=== PATIENT | male | born 1950 | race Caucasian/White ===

== ENCOUNTER 2025-06-10 08:27 | Observation (INO) ==
[2025-06-10 09:17] LABS: Hematocrit (blood only) 41.9 % (42.0-52.0); Hemoglobin 14.4 g/dl (14.0-18.0); Immature Granulocytes # (auto) 0.02 K/uL (0.01-0.20); Immature Granulocytes % (auto) 0.3 %; Mean Corpuscular Hemoglobin 29.3 pg (25.0-34.0); Mean Corpuscular Volume 85.2 fL (80.0-100.0); Platelet Count 274 K/uL (130-400); RDW Standard Deviation 43.6 fL (36.4-46.3); Red Blood Count 4.92 M/uL (4.70-6.10); White Blood Count 6.13 K/ul (4.8-10.8)
[2025-06-10 09:18] LABS: Appearance Urine Clear (Clear); Glucose Urine UA Negative (Negative)
--- NOTE | 2025-06-10 09:24 | XRay Report ---
XR chest 1V portable CLINICAL HISTORY: Dyspnea COMPARISON STUDY: 06/02/2025 FINDINGS: Stable mild cardiomegaly without pulmonary vascular congestion. Stable embolization coils o verlying the right hilum. No consolidation or pleural effusion. No pneumothorax. IMPRESSION: No acute findings. ACT 112: Negative or not required by law. Electronically signed by: Se Snow M.D. 06/10/2025 9:22 AM
[2025-06-10 09:36] LABS: Anion Gap 8.0 (3-11); Bilirubin,Total 0.4 mg/dl (0.2-1.0); Calcium 9.1 mg/dl (8.6-10.3); Carbon Dioxide 24.0 mmol/L (21-32); Chloride 106.0 mmol/L (98-107); Magnesium 2.1 mg/dl (1.7-2.4); Potassium 4.2 mmol/L (3.5-5.1); Sodium 138.0 mmol/L (136-145)
[2025-06-10 09:42] LABS: Alanine Aminotransferase 30.0 U/L (7-52); Albumin Globulin Ratio 1.3 (0.9-2); Alkaline Phosphatase 59.0 U/L (34-104); Blood Urea Nitrogen 15.0 mg/dl (6-23); Creatinine Clr Calc Pharmacy 49.5 ml/min; Globulin 3.1 gm/dl (2.5-4.0); Glucose 88.0 mg/dl (70-99(Fasting)); Total Protein 7.2 gm/dl (6.0-8.3)
[2025-06-10 09:45] LABS: INR 2.1 (0.9-1.1); Prothrombin Time 21.4 Seconds (9.0-12.0)
--- NOTE | 2025-06-10 10:11 | Emergency Department Note ---
Impression & Plan Congestive heart failure, Orthopnea ED Provider Note NAME: VINOD POSADA AGE: 75 SEX: M : 1950 ARRIVES VIA: Walk-In INFORMANT: Patient, ED PROVIDER(S): Miracle Morales MD CHIEF COMPLAINT: Chest pain, shortness of breath HPI: This is a 75-year-old male present for chest pain and shortness of breath. Patient notes that last night he began having intermittent shortness of breath, specifically with laying flat. He reports that he was recently at an outside hospital where he had a STEMI, had a V. tach cardiac arrest and was transferred to this hospital. He was then transferred out to another hospital where he had cardiac catheterization. Patient was started on Brilinta, Lovenox and baby aspirin. No reported pleurisy. Patient states he has had chest pain intermittently which he thinks is due to the chest compressions. This has been persistent since his episode multiple weeks ago. ROS: See above HPI for pertinent positives & negatives. A total of 10 systems reviewed and were otherwise negative. PAST MEDICAL HISTORY: See Below PAST SURGICAL HISTORY: See Below FAMILY HISTORY: See Below SOCIAL HISTORY: See Below HOME MEDICATIONS: See Below ALLERGIES: See Below VITALS: See Below PHYSICAL EXAMINATION: General: resting comfortably in no acute distress Head: Normocephalic and atraumatic Eyes: Normal inspection, extraocular muscles intact Ear, nose, throat: Normal external exam Neck: Normal range of motion Respiratory: lungs clear to auscultation bilaterally Cardiovascular: Regular rate/rhythm, no murmur GI: soft, nontender, no guarding or rebound Extremities: nontender, moves all extremities Neuro: The patient awake and alert, appropriately conversive, no focal deficits, symmetric faces Skin: Warm, dry, and intact MEDICAL DECISION MAKING: This is 75-year-old male presenting for chest pain/shortness of breath. Patient is found orthopneic shortness of breath. Chest pain is persistent since his cardiac arrest and is sternal. Will do EKG, troponin, BNP, chest x-ray. He is already on blood thinners and not hypoxic currently to suggest PE. - Bloodwork is reviewed showing no significant leukocytosis, anemia, electrolyte or creatinine abnormality. Creatinine 1.53 -Troponin elevated at 113, downtrend to 105. Reported the patient's discharge troponin was 2500 4 days ago. - BNP slightly elevated. With patient orthopnea, consider CHF. Due to patient's previous history of cardiac arrest, STEMI, will limit the patient for observation and further workup including echocardiogram. Differential diagnosis: ACS, PE, CHF, pneumonia Independent History obtained from: Diagnostics interpreted by me: ECG: ECG independently interpreted by me with sinus bradycardia with first- degree AV block and rate of 58, left bundle branch block, normal QTc, no ST segment elevations consistent with STEMI criteria Cardiac Monitoring: An order was placed for continuous cardiac monitoring. The monitor shows a rate of 53 with sinus rhythm. 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) Orthopnea (Acute) Atrial fibrillation, currently in sinus rhythm (Chronic) Hypertension (Chronic) Coronary artery disease (Chronic) Medical History Anaplasmosis Social History Smoking Status: Former smoker Hx Alcohol Use: No Hx Substance Use: No Preferred Language: Upper Sorbian Beliefs That Will Affect Care: Shinto Current Living Situation: Spouse current occupation: Retired Feels Safe at Home: Yes Allergies Allergies Allergy/AdvReac Type Severity Reaction Status Date / Time [id number] Reductase AdvReac Severe MUSCLE Verified 06/02/25 10:00 Inhibitor PAIN/STIFFNESS Home Meds Home Medications Medication Instructions Recorded Confirmed cholecalciferol (vitamin D3) 25 25 mcg PO DAILY 05/19/23 06/10/25 mcg (1,000 unit) capsule (Vitamin D3) enalapril maleate 10 mg tablet 10 mg PO BID 05/19/23 06/10/25 colchicine 0.6 mg tablet 0.6 mg PO DIRECTED PRN Gout 06/02/25 06/10/25 Flare metoprolol succinate 25 mg 12.5 mg PO DAILY 06/02/25 06/10/25 tablet,extended release 24 hr amiodarone 200 mg tablet 200 mg PO DAILY 06/10/25 06/10/25 aspirin 81 mg tablet,delayed 81 mg PO DAILY 06/10/25 06/10/25 release enoxaparin 100 mg/mL subcutaneous 100 mg subcut Q12H 06/10/25 06/10/25 syringe ticagrelor 90 mg tablet 90 mg PO BID 06/10/25 06/10/25 warfarin 3 mg tablet 3 - 6 mg PO PM 06/10/25 06/10/25 Results & Data (ED) Vital Signs Vital Signs - 24 hr 06/10/25 08:28 06/10/25 08:28 06/10/25 08:32 Temperature 36.6 C Temperature Source Temporal Artery Scan Pulse Rate 58 L Pulse Rate from SpO2 Sensor Respiratory Rate 18 Respiratory Effort / Characteristics Non-Labored Spontaneous Respiratory Depth Normal Blood Pressure 133/78 Blood Pressure Mean 96 Pulse Oximetry 97 Oxygen Delivery Method Room Air Room Air Room Air Sepsis Recent Fever Within 48 Hours No Sepsis New/Unexplained Change in Mental Status No Sepsis Action Taken by Nursing No Action Required 06/10/25 08:45 06/10/25 08:48 06/10/25 08:49 Temperature Temperature Source Pulse Rate 57 L 58 L Pulse Rate from SpO2 Sensor 58 L Respiratory Rate 16 Respiratory Effort / Characteristics Respiratory Depth Blood Pressure 141/96 H 146/91 H Blood Pressure Mean 109 109 Pulse Oximetry 98 Oxygen Delivery Method Sepsis Recent Fever Within 48 Hours Sepsis New/Unexplained Change in Mental Status Sepsis Action Taken by Nursing 06/10/25 09:03 06/10/25 09:27 06/10/25 09:39 Temperature Temperature Source Pulse Rate 54 L 52 L 51 L Pulse Rate from SpO2 Sensor 54 L 52 L 51 L Respiratory Rate 15 16 15 Respiratory Effort / Characteristics Respiratory Depth Blood Pressure 146/91 H 123/69 Blood Pressure Mean 109 87 Pulse Oximetry 97 97 98 Oxygen Delivery Method Sepsis Recent Fever Within 48 Hours Sepsis New/Unexplained Change in Mental Status Sepsis Action Taken by Nursing 06/10/25 09:57 06/10/25 10:03 06/10/25 10:30 Temperature Temperature Source Pulse Rate 56 L 53 L 52 L Pulse Rate from SpO2 Sensor 55 L 52 L 52 L Respiratory Rate 17 14 18 Respiratory Effort / Characteristics Respiratory Depth Blood Pressure 121/82 121/82 Blood Pressure Mean 95 95 Pulse Oximetry 98 99 97 Oxygen Delivery Method Sepsis Recent Fever Within 48 Hours Sepsis New/Unexplained Change in Mental Status Sepsis Action Taken by Nursing 06/10/25 11:00 06/10/25 11:00 06/10/25 11:27 Temperature Temperature Source Pulse Rate 52 L 52 L Pulse Rate from SpO2 Sensor 52 L 53 L Respiratory Rate 17 14 Respiratory Effort / Characteristics Respiratory Depth Blood Pressure 120/71 120/71 120/71 Blood Pressure Mean 87 90 87 Pulse Oximetry 97 97 Oxygen Delivery Method Sepsis Recent Fever Within 48 Hours Sepsis New/Unexplained Change in Mental Status Sepsis Action Taken by Nursing 06/10/25 12:03 06/10/25 12:48 Temperature Temperature Source Pulse Rate 52 L 53 L Pulse Rate from SpO2 Sensor 52 L Respiratory Rate 18 Respiratory Effort / Characteristics Respiratory Depth Blood Pressure 134/84 Blood Pressure Mean 100 Pulse Oximetry 98 Oxygen Delivery Method Sepsis Recent Fever Within 48 Hours Sepsis New/Unexplained Change in Mental Status Sepsis Action Taken by Nursing Laboratory Data 06/10/25 08:52 06/10/25 08:52 Lab Results 06/10/25 06/10/25 Range/Units 08:52 10:51 WBC 6.13 (4.8-10.8) K/ul RBC 4.92 (4.70-6.10) M/uL Hgb 14.4 (14.0-18.0) g/dl Hct 41.9 L (42.0-52.0) % MCV 85.2 (80.0-100.0) fL MCH 29.3 (25.0-34.0) pg MCHC 34.4 (32.0-36.0) g/dL RDW Std Deviation 43.6 (36.4-46.3) fL RDW Coeff of Mehul 14.3 (11.5-14.5) % Plt Count 274 (130-400) K/uL MPV 9.3 L (9.4-12.4) fL Immature Gran % (Auto) 0.3 % Neut % (Auto) 46.6 % Lymph % (Auto) 38.3 % [place] % (Auto) 10.0 % Eos % (Auto) 4.1 % Baso % (Auto) 0.7 % Neut # (Auto) 2.86 (1.40-6.50) K/uL Lymph # (Auto) 2.35 (1.20-3.40) K/uL [place] # (Auto) 0.61 H (0.11-0.59) K/uL Eos # (Auto) 0.25 (0.00-0.50) K/uL Baso # (Auto) 0.04 (0.00-0.20) K/uL Immature Gran # (Auto) 0.02 (0.01-0.20) K/uL PT 21.4 H (9.0-12.0) Seconds INR 2.1 H (0.9-1.1) Sodium 138 (136-145) mmol/L Potassium 4.2 (3.5-5.1) mmol/L Chloride 106 (98-107) mmol/L Carbon Dioxide 24 (21-32) mmol/L Anion Gap 8 (3-11) BUN 15 (6-23) mg/dl Creatinine 1.53 H (0.6-1.4) mg/dl Est Cr Clr Drug Dosing 49.5 ml/min eGFR 46.82 BUN/Creatinine Ratio 9.8 L (10-20) Glucose 88 (70-99(Fasting)) mg/dl Calcium 9.1 (8.6-10.3) mg/dl Magnesium 2.1 (1.7-2.4) mg/dl Total Bilirubin 0.4 (0.2-1.0) mg/dl AST 21 (13-39) U/L ALT 30 (7-52) U/L Alkaline Phosphatase 59 (34-104) U/L Troponin I High Sens 113.2 H* 105.2 H* (0-20) pg/ml B-Natriuretic Peptide 322 H (0-100) pg/ml Total Protein 7.2 (6.0-8.3) gm/dl Albumin 4.1 (3.4-5.0) gm/dl Globulin 3.1 (2.5-4.0) gm/dl Albumin/Globulin Ratio 1.3 (0.9-2) Urine Color Yellow Urine Appearance Clear (Clear) Urine pH 8.5 H (4.5-7.5) Ur Specific [place] 1.007 (1.000-1.030) Urine Protein Negative (Negative) Urine Glucose (UA) Negative (Negative) Urine Ketones Negative (Negative) Urine Blood Negative (Negative) Urine Nitrite Negative (Negative) Urine Bilirubin Negative (Negative) Urine Urobilinogen Negative (Negative) Ur Leukocyte Esterase Negative (Negative) Urine Comment Imaging Data Radiologist's Impression: Chest X-Ray 06/10/25 08:48 XR chest 1V portable CLINICAL HISTORY: Dyspnea COMPARISON STUDY: 06/02/2025 FINDINGS: Stable mild cardiomegaly without pulmonary vascular congestion. Stable embolization coils overlying the right hilum. No consolidation or pleural effusion. No pneumothorax. IMPRESSION: No acute findings. ACT 112: Negative or not required by law. Electronically signed by: Se Snow M.D. 06/10/2025 9:22 AM Discharge Plan Visit Data Chief Complaint: Shortness of Breath/Dyspnea Stated Complaint: LIGHTHEADED, SOB, STEMI ON 06/02 ED Provider: Miracle Morales Discharge Problem: Congestive heart failure, Orthopnea Patient Disposition: Admitted As Inpatient Condition: Fair Forms Stand Alone Forms: My [facility] Prescriptions Prescriptions: No Action enalapril maleate 10 mg tablet 10 mg PO BID Patient Comments: currently on hold cholecalciferol (vitamin D3) [Vitamin D3] 25 mcg (1,000 unit) Capsule 25 mcg PO DAILY metoprolol succinate 25 mg tablet extended release 24 hr 12.5 mg PO DAILY colchicine 0.6 mg tablet 0.6 mg PO DIRECTED PRN (Reason: Gout Flare) aspirin 81 mg tablet,delayed release (DR/EC) 81 mg PO DAILY enoxaparin 100 mg/mL syringe 100 mg subcut Q12H ticagrelor 90 mg tablet 90 mg PO BID Patient Comments: 06/10- per spouse, pt took loading dose of 180mg this morning and will drop to 90mg this evening amiodarone 200 mg tablet 200 mg PO DAILY warfarin 3 mg tablet 3 - 6 mg PO PM Referrals Referrals: Abhijeet Santoyo MD [Primary Care Provider] -
--- NOTE | 2025-06-10 13:34 | History & Physical Report ---
Date of Service June 10, 2025 Assessment & Plan (1) Elevated troponin level not due to acute coronary syndrome: (2) Orthopnea: (3) Compensated heart failure with improved ejection fraction (HFimpEF): (4) Atrial fibrillation, currently in sinus rhythm: (5) Hypertension: (6) Coronary artery disease: Plan In summary this is a 75-year-old male who presents to [facility] for substernal comfort and orthopnea with recent occlusive myocardial infarction requiring ACLS protocol and transfer to tertiary care center within the past 10 days; interventions at this tertiary center included thrombolysis of a right coronary artery thrombus without stenting required. # Elevated troponin level not due to ACS//orthopnea//compensated heart failure with improved ejection fraction Slightly elevated troponin level is continuing to downtrend from previous measures obtained at a tertiary care center, per family report the patient's troponin around the time of discharge was 2100; downtrending troponin during his current ED presentation. EKGs without ischemic changes, though significantly different from his previous EKG in our system which is expected considering interventions provided after transfer; continue outpatient medication regimen as detailed below Continuous cardiac telemetry Obtain TTE to compare to previously obtained post resuscitation TTE from 1 week prior Obtain INR on 06/11 to assess for therapeutic INR of 2.0-3.0 Continue warfarin 3 mg p.o. daily in the evening, ticagrelor 90 mg p.o. twice daily, metoprolol succinate 12.5 mg p.o. daily, Lovenox 100 mg subcutaneous twice daily through 06/10, aspirin 81 mg p.o. daily through 06/15 # atrial fibrillation Chronic condition, currently in sinus rhythm; continue home amiodarone 20 mg p.o. daily # hypertension Enalapril was discontinued during his previous hospitalization at a tertiary care facility; consider reinitiation or initiation of an alternative medication during his hospitalization if he remains persistently hypertensive to reduce risk of long-term cardiovascular consequences Admission and Anticipated Discharge Date Admission Date: 06/10/2025; Anticipated discharge within 24 to 48 hours History of Present Illness Primary Care Provider: Abhijeet Santoyo MD Mr. Ayala is a 75-year-old male whose active medical conditions include heart failure with improved ejection fraction, chronic atrial fibrillation who presented to [facility] on 06/10 due to sudden onset orthopnea and substernal chest discomfort that began on the morning of 06/10. Of note the patient was recently hospitalized at [facility] due to an occlusive myocardial infarction of the right coronary artery requiring thrombolysis. They were discharged from that facility on 06/06.They were feeling well since discharge until this morning with the symptoms previously described. Allergies Allergy/AdvReac Type Severity Reaction Status Date / Time [id number] Reductase AdvReac Severe MUSCLE Verified 06/02/25 10:00 Inhibitor PAIN/STIFFNESS Home Medications Medication Instructions Recorded Confirmed Type cholecalciferol (vitamin D3) 25 25 mcg PO DAILY 05/19/23 06/10/25 History mcg (1,000 unit) capsule (Vitamin D3) enalapril maleate 10 mg tablet 10 mg PO BID 05/19/23 06/10/25 History colchicine 0.6 mg tablet 0.6 mg PO DIRECTED PRN Gout 06/02/25 06/10/25 History Flare metoprolol succinate 25 mg 12.5 mg PO DAILY 06/02/25 06/10/25 History tablet,extended release 24 hr amiodarone 200 mg tablet 200 mg PO DAILY 06/10/25 06/10/25 History aspirin 81 mg tablet,delayed 81 mg PO DAILY 06/10/25 06/10/25 History release enoxaparin 100 mg/mL subcutaneous 100 mg subcut Q12H 06/10/25 06/10/25 History syringe ticagrelor 90 mg tablet 90 mg PO BID 06/10/25 06/10/25 History warfarin 3 mg tablet 3 - 6 mg PO PM 06/10/25 06/10/25 History Past Med/Surg History Problem List (Updated 06/10/25 @ 13:29 by Erick Gudino DO) Elevated troponin level not due to acute coronary syndrome (Acute) 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) Orthopnea (Acute) Atrial fibrillation, currently in sinus rhythm (Chronic) Hypertension (Chronic) Coronary artery disease (Chronic) Medical History Anaplasmosis Social History Smoking Status: Former smoker Hx Alcohol Use: No Hx Substance Use: No Preferred Language: Singaporean Beliefs That Will Affect Care: Islam Current Living Situation: Spouse current occupation: Retired Feels Safe at Home: Yes Review of Systems Review of Systems: Constitutional: denies fevers, chills, malaise, fatigue Cardiovascular: endorses orthopnea, substernal chest discomfort; denies palpitations, syncope, peripheral edema, platypnea Pulmonary: denies cough, dyspnea on exertion, pleuritic chest pain Gastrointestinal: denies nausea, emesis, dysphagia, dyspepsia, constipation, diarrhea Genitourinary: denies dysuria, hematuria, urinary incontinence Neurologic: denies focal weakness, paresthesias or numbness Musculoskeletal: denies arthralgias, progressive weakness, recent falls Integumentary: denies new or developing rashes or lesions Physical Exam Physical Exam: General: Adult male in no acute distress Vital Signs: bradycardic rate, asymptomatic HEENT: Normocephalic, atraumatic; pupils equally reactive to light, extraocular motions intact; moist mucous membranes Neck: No palpable lymphadenopathy Pulmonary: symmetric chest wall excursion; CTAB Cardiovascular: Regular rate and rhythm with no murmurs, rubs, or gallops; S1 and S2 normal; bilateral radial and posterior tibial pulses 2+; no notable lower extremity edema Gastrointestinal: Soft, nondistended; ecchymoses overlying the bilateral lower quadrants in the areas of low molecular weight heparin administration Neurologic: CN II-XII grossly intact; no discernible focal weakness nor paresthesias Results & Data Results & Data Vital Signs (Past 12 Hours) Vital Signs Temp Pulse Resp BP Pulse Ox O2 Del Method 06/10/25 12:48 53 L 06/10/25 12:03 52 L 18 134/84 98 06/10/25 11:27 52 L 14 120/71 97 06/10/25 11:00 120/71 06/10/25 11:00 52 L 17 120/71 97 06/10/25 10:30 52 L 18 121/82 97 06/10/25 10:03 53 L 14 99 06/10/25 09:57 56 L 17 121/82 98 06/10/25 09:39 51 L 15 98 06/10/25 09:27 52 L 16 123/69 97 06/10/25 09:03 54 L 15 146/91 H 97 06/10/25 08:49 58 L 06/10/25 08:48 57 L 16 146/91 H 98 06/10/25 08:45 141/96 H 06/10/25 08:32 36.6 C 58 L 18 133/78 97 Room Air 06/10/25 08:28 Room Air 06/10/25 08:28 Room Air Code Status & VTE Plan VTE Prophylaxis Plan VTE Prophylaxis will be ordered: Yes PG Care Time/CCT Total # of Minutes Spent Total Time Spent with Patient: Total time spent is greater than 50% in coordination of care (as documented) at patient's floor/unit and/or counseling patient: [place] [address] INT INP/OBS CARE 3/75MIN Patient Type New History Comprehensive Exam Comprehensive Medical Decision Making High Complexity Diagnoses Elevated troponin level not due to acute coronary syndrome R79.89 Orthopnea R06.01 Compensated heart failure with improved ejection fraction (HFimpEF) I50.20 Atrial fibrillation, currently in sinus rhythm Z86.79 Primary hypertension I10 Hypertension type: primary hypertension Coronary artery disease I25.10 Coronary Disease-Associated Artery/Lesion type: [place] artery (5) Hypertension Hypertension type: primary hypertension Qualified Code(s): I10 - Essential (primary) hypertension (6) Coronary artery disease Coronary Disease-Associated Artery/Lesion type: [place] artery
[2025-06-10] MEDS: ENOXAPARIN 100 MG/1ML SYR SQ SCH (18:28)
--- NOTE | 2025-06-10 18:35 | XCELERA ---
[id number]
[2025-06-10] MEDS ORDERED: COLCHICINE 0.6 MG TAB PO PRN (19:13)
[2025-06-10] MEDS ORDERED: MELATONIN 3 MG TAB PO PRN (19:13)
[2025-06-10] MEDS: WARFARIN SOD 3 MG TAB PO SCH (21:10)
[2025-06-10] MEDS: TICAGRELOR 90 MG TAB PO SCH (21:11)
[2025-06-11 05:46] LABS: INR 1.9 (0.9-1.1); Prothrombin Time 19.3 Seconds (9.0-12.0)
[2025-06-11] MEDS: ASPIRIN 81 MG ECTAB PO SCH (07:37)
[2025-06-11] MEDS: AMIODARONE 200 MG TAB PO SCH (07:38)
[2025-06-11] MEDS: METOPROLOL SUCC 25MG EXT REL TAB PO SCH (07:38)
[2025-06-11] MEDS: CHOLECALCIFEROL 25 MCG (1000 UNITS) TAB PO SCH (07:39)
[2025-06-11 07:59] VITALS: BP 154/88; PULSE 52; RESP 19; TEMP 97.7; O2SAT 96
--- NOTE | 2025-06-11 12:28 | Discharge Summary ---
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 #Elevated troponin level not due to ACS//orthopnea//compensated heart failure with improved ejection fraction Slightly elevated troponin level is continuing to downtrend from previous measures obtained at a tertiary care center, per family report the patient's troponin around the time of discharge was 2100; downtrending troponin during his current ED presentation. EKGs without ischemic changes, though significantly different from his previous EKG in our system which is expected considering interventions provided after transfer; continue outpatient medication regimen as detailed below -TTE obtained on 06/10 did not reveal significant changes from study performed at [facility] status post percutaneous cardiac intervention with ejection fraction of 55 to 60%, severely dilated right ventricle with reduced systolic function notable sparing of the apex and a consistent pattern with a right coronary artery infarct - INR on 06/11 measures 1.9, slightly below therapeutic range, recommend continuation of previously prescribed dose of warfarin with reassessment on Continue warfarin 3 mg p.o. daily in the evening, ticagrelor 90 mg p.o. twice daily, metoprolol succinate 12.5 mg p.o. daily, Lovenox 100 mg subcutaneous twice daily through 06/10, aspirin 81 mg p.o. daily through 06/15 #Atrial fibrillation Chronic condition, currently in sinus rhythm; continue home amiodarone 20 mg p.o. daily #Hypertension Enalapril was discontinued during his previous hospitalization at a tertiary care facility; consider reinitiation or initiation of an alternative medication during his hospitalization if he remains persistently hypertensive to reduce risk of long-term cardiovascular consequences Notes For Next Care Provider Patient identified high risk for 30- day readmission. Our hospitalist team would be glad to discuss any details of the hospital stay with you, please reach out by [facility] with a good call back number and we will return your call. Admission HPI Per Admitting Provider Mr. Ayala is a 75-year-old male whose active medical conditions include heart failure with improved ejection fraction, chronic atrial fibrillation who presented to [facility] on 06/10 due to sudden onset orthopnea and substernal chest discomfort that began on the morning of 06/10. Of note the patient was recently hospitalized at [facility] due to an occlusive myocardial infarction of the right coronary artery requiring t hrombolysis. They were discharged from that facility on 06/06.They were feeling well since discharge until this morning with the symptoms previously described. Discharge Exam General: Adult male in no acute distress Vital Signs: bradycardic rate, asymptomatic HEENT: Normocephalic, atraumatic; pupils equally reactive to light, extraocular motions intact; moist mucous membranes Neck: No palpable lymphadenopathy Pulmonary: symmetric chest wall excursion; CTAB Cardiovascular: Regular rate and rhythm with no murmurs, rubs, or gallops; S1 and S2 normal; bilateral radial and posterior tibial pulses 2+; no notable lower extremity edema Gastrointestinal: Soft, nondistended; ecchymoses overlying the bilateral lower quadrants in the areas of low molecular weight heparin administration Neurologic: CN II-XII grossly intact; no discernible focal weakness nor paresthesias Discharge Plan Discharge Items Patient Disposition: Home - Self-Care Reason For Visit: CHEST PAIN Discharge Diagnosis: ACS rule out Condition on Discharge: Fair Activity: Per Instructions section Lifting: None Exercise/Sports: None Driving/Machine Use: No limitations Weightbearing: Full weightbearing Non-emergency contact: Primary Care Provider and Communication Center Operator Call non-emergency contact if: you have any medication questions and your symptoms worsen Follow-up/Referrals: Abhijeet Santoyo MD [Primary Care Provider] - Diet: Low Fat and Low Sodium (2gm) Fluids: 1800ml (7 cups) Ambulatory Orders: Prothrombin Time INR (Routine) Timeframe: [id number] Location: Determined by Patient Ordered By: Erick Carter Attending Provider Instructions: Maintain follow up appointments as scheduled Contact Coumadin clinic for follow up assessment, lab order provided for 06/14 Pending Studies at Discharge: No Stand-Alone Forms: My [facility] Medications and DC Order Prescriptions: Continued cholecalciferol (vitamin D3) [Vitamin D3] 25 mcg (1,000 unit) Capsule 25 mcg PO DAILY metoprolol succinate 25 mg tablet extended release 24 hr 12.5 mg PO DAILY colchicine 0.6 mg tablet 0.6 mg PO DIRECTED PRN (Reason: Gout Flare) aspirin 81 mg tablet,delayed release (DR/EC) 81 mg PO DAILY ticagrelor 90 mg tablet 90 mg PO BID Patient Comments: 06/10- per spouse, pt took loading dose of 180mg this morning and will drop to 90mg this evening amiodarone 200 mg tablet 200 mg PO DAILY warfarin 3 mg tablet 3 - 6 mg PO PM Held enalapril maleate 10 mg tablet 10 mg PO BID Hold Instructions: Resume on 06/24/25. Resume based on cardiology recommendations at follow up Patient Comments: currently on hold Discontinued enoxaparin 100 mg/mL syringe 100 mg subcut Q12H Discharge Orders: Discharge Order- CHF (Routine); Ordered 06/11/25 Ordered By: Erick Gudino Admission Data Admit Date/Time: 06/10/25 12:31 Attending Provider: Erick Gudino Admit Provider: Erick Gudino Primary Care Provider: Abhijeet Santoyo Other Providers: Erick Gudino Other Interventions: Discharge Summary Assessment (RN) Last Done: 06/11/25 09:09 Hospital Stay Data Consultations 06/10/25 12:48 ED Decision to Admit Stat Pending Results Patient Have Any Pending Studies at Discharge: No Discharge Instructions Given to Patient (Per Discharging Provider) Maintain follow up appointments as scheduled Contact Coumadin clinic for follow up assessment, lab order provided for 06/14 Total Time Total Time Spent Total Time Spent (In Minutes): 45 Coding Level of Care Code INP/OBS EV SAME DAY LV 1,45MIN Diagnoses Elevated troponin level not due to acute coronary syndrome R79.89 Orthopnea R06.01 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
--- NOTE | 2025-06-11 22:34 | Electrocardiogram Report ---
Test Reason : Blood Pressure : */* mmHG Vent. Rate : 58 BPM Atrial Rate : 58 BPM P-R Int : 288 ms QRS Dur : 152 ms QT Int : 478 ms P-R-T Axes : 41 -38 113 degrees QTcB Int : 469 ms Sinus bradycardia with sinus arrhythmia with 1st degree A-V block Left axis deviation Left bundle branch block Abnormal ECG When compared with ECG of 02-Jun-2025 07:55, Sinus rhythm has replaced Atrial fibrillation Vent. rate has decreased by 35 bpm QRS axis Shifted left Confirmed by Rafael Trevino ([id number]) on 06/11/2025 10:34:19 PM Referred By: REFERRED SELF Confirmed By: Rafael Trevino
== END 2025-06-11 09:29 | disposition home or self-care (01) ==
LOC: EDINP 08:27 → ED 08:27 → 2S 19:13